=== PATIENT | female | born 1995 | race Caucasian/White ===

== ENCOUNTER 2017-03-06 19:59 | Inpatient (IN) | payer OTHER ==
[~2017-03-06] VITALS: Ht 167.6 cm; Wt 55.8 kg
--- NOTE | 2017-03-07 00:45 | NUR ---
Intake Assessment Assessment done at intake office. Patient is alert & oriented x4. Pt is ambulatory with a steady gait. Speech is clear and audible. Pt appears slightly anxious and is cooperative during interviews. Vitals noted B/P 121/73, GA 106, RR 16, Temp 97.8, O2Sat 96%. Pt is here for Heroin/Xanax/Meth. Pt has Hepatitis C, Anxiety & Depression. Hx of Sz noted d/t benzo withdrawal. Pt denies any food and drug allergies. Pt did not bring any home medications. Explained to pt unit protocols. Pt verbalized understanding.
--- NOTE | 2017-03-07 01:00 | NUR ---
ADMISSION NOTE: Patient is a 22 y.o male admitted at [facility] at approximately 0053 am of 03/07/17 for medically supervised withdrawal from Opiate and Benzo. Body search done and skin check performed, no contraband found. Skin intact. Pt has a bump on her right foot and noted to be red, warm & with complaints of slight pain. Pt is 5'6" tall and weighs 123 lbs in a standing scale. Pt is cooperative during assessment. Patient is oriented to floor unit and room. Patient follows a regular diet at home with no known food and drug allergies. Pt wishes to be full Code. Patient is alert & oriented x4, ambulatory with a steady gait. Speech is clear and audible. Patient is cooperative during interview. No shortness of breath noted. Respiration even & unlabored. Abdomen soft & non-distended. Bowel sounds active in all four quadrants. No nausea/vomiting noted. No complaints of pain/discomfort. No Bilateral hand tremors noted at this time. No hallucinations. Pt currently denies SI/HI. COWS 3 CIWA 1 noted. Patient reported PmHx of Hepatitis C, Anxiety & Depression. Pt was able to provide urine sample for drug screen upon admission and is voiding clear yellow urine with no problems. Substance use: 1. Xanax- Pt has been taking PO Xanax since 16 years old. Pt uses 2-6mg daily for 1 year. Pt last took was 4mg on 03/06/17. 2. Heroin- Pt has been taking IV Heroin since 16 years old. Pt uses 2grams daily for 1 year. Pt last use was 1gram on 03/06/17 2 hours before admission. 3. Meth- Pt just started taking IV Meth a year ago . Pt uses 1 gram daily for 1 year. Pt last use was 0.5 gram on 03/06/17. Treatment History: Pt has been to Multiple Tx centers -[facility] at [place] for 4 months (2014) -[facility] in [place] -Unable to recall others Patient denies being hospitalized in the last 30 days. Patient reports his longest period of sobriety was for 1 year from Feb 2015 to Feb 2016. Patient reports symptoms when he does not use as goose bumps, sweating, anxiety, constipation/diarrhea, body aches, confusion, & headache. Patient smokes 10 cigarettes daily. Patient refused flu & pneumonia vaccines, educated patient risk & benefits but still refused. Patient does not have a PCP. Urine drug screen came back positive for Opiates and Methamphetamine. Fall & Seizure precautions are in place. All needs attended & met. Safety precautions are in place. Bed locked in lowest position. Both side rails padded & up. Call light within pt's reach. Notified Dr. Morgan of pt's admission. Will continue to monitor patient.
[2017-03-07 01:17] LABS: *URINE HCG, QUAL NEGATIVE (NEGATIVE)
[2017-03-07 01:39] LABS: *AMPHETAMINE, URINE POSITIVE (NEGATIVE); *BARBITURATE, URINE NEGATIVE (NEGATIVE); *CANNABINOID, URINE POSITIVE (NEGATIVE); *COCCAINE, URINE NEGATIVE (NEGATIVE); *OPIATE, URINE POSITIVE (NEGATIVE); *PHENCYCLIDINE SCREEN,URINE NEGATIVE (NEGATIVE)
--- NOTE | 2017-03-07 01:59 | NUR ---
PRN Benadryl Patient requesting for medication to help her sleep. PRN Benadryl administered as ordered. Will continue to monitor patient.
[2017-03-07 03:38] LABS: ALANINE AMINOTRANSFERASE 141 U/L (14-59); ALKALINE PHOSPHATASE 217 U/L (50-136); AMYLASE 39 U/L (25-115); ASPARTATE AMINOTRANSFERASE 36 U/L (15-37); BILIRUBIN,TOTAL 0.5 mg/dL (0.2-1.0); CARBON DIOXIDE 29 mmol/L (21-32); CHLORIDE 100 mmol/L (98-107); CREATININE 0.8 mg/dL (0.6-1.3); GLUCOSE 133 mg/dL (74-106); LIPASE 135 U/L (73-393); MAGNESIUM 2.3 mg/dL (1.8-2.4); POTASSIUM 2.9 mmol/L (3.5-5.1); TOTAL PROTEIN, SERUM 10.3 g/dL (6.4-8.2); UREA NITROGEN, BLOOD 6 mg/dL (7-18)
[2017-03-07 03:41] LABS: ETHANOL < 3 MG/DL (0-0)
[2017-03-07 03:49] LABS: THYROID STIMULATING HORMONE 4.816 mIU/mL (0.358-3.740)
--- NOTE | 2017-03-07 04:00 | NUR ---
Communication: Dr Morgan contacted for new lab results: K+ 2.9. New order received for K-Dur 40meq PO x1 now and K-Dur 20meq PO x1 to be given one hour after first dose administered. Order noted, repeated, and carried out.
[2017-03-07 05:20] VITALS: BP 112/75
--- NOTE | 2017-03-07 07:08 | NUR ---
End of Shift Note: Patient is a 22 y/o female admitted today 03/07/17 for Heroin, Xanax and Meth dependence. Patient reports using Xanax 2-6 mg daily, Heroin Iv 2gms daily and Meth IV 1gm daily for 1 year. Patient has PMHx of Hepatitis C, Anxiety, Depression and Seizure history d/t benzo withdrawal 2 years ago. Patient is on a regular diet with no known food and drug allergies. Full Code status noted. Skin noted to be intact. COWS 3 CIWA 1. Pt was given PRN Benadryl and K-dur 60meq for potassium level of 2.9. Patient is stable and vitals remains WNL. Pt slept for a total of 3 hours. Pt consumed 296ml of fluids. Voided 1x with no bowel movement. All needs attended & met. Safety measures in place. Will continue to monitor patient.
[2017-03-07 08:00] VITALS: BP 96/60
--- NOTE | 2017-03-07 08:30 | NUR ---
START OF SHIFT: RECEIVED PT LAYING IN BED A/O X 4. SHE C/O RESTLESSNESS,H/A 5/10,MILD MUSCLE ACHES,CHILLS, SWEATS AND SEVERE ANXIETY.FINE TREMORS NOTED. CIWA 10 COWS 10. PRN VALIUM 10 MG PO GIVEN TO MANAGE CIWA 10. PRN TYLENOL AND PRN ROBAXIN GIVEN TO MANAGE MUSCLE ACHES AND H/A. WILL MONITOR EFFECTIVENESS OF PRN MED. WILL CONTINUE TO MONITOR AND MANAGE S/S OF W/D.
--- NOTE | 2017-03-07 09:30 | NUR ---
PRN VALIUM EFFECTIVE PT'S CIWA NOW 5. SHE STATES TYLENOL AND ROBAXIN WERE EFFECTIVE AND SHE STATES SHE FEELS BETTER.
[2017-03-07 12:00] VITALS: BP 98/64
--- NOTE | 2017-03-07 12:45 | NUR ---
ORDERED SUBUTEX ATIVAN TAPER TO START AT 1300.
[2017-03-07 16:00] VITALS: BP 112/66
--- NOTE | 2017-03-07 18:50 | NUR ---
END OF SHIFT: PT STARTED ON ATIVAN/SUBUTEX TAPER TODAY. 1700 MEDS AND 1600 COWS AND CIWA DEFERRED PT WAS ASLEEP. LAST COWS 14 CIWA 7 AT NOON. SHE C/O CHILLS,BODY ACHES ,SWEATS AND ANXIETY THIS AM AND STATES DETOX MEDS HAVE BEEN EFFECTIVE. PT WAS COMPLIANT WITH REST AND FLUIDS TODAY. WILL PASS SHIFT REPORT TO ONCOMING NIGHT NURSE.
--- NOTE | 2017-03-07 19:15 | NUR ---
Start of Shift Note: Patient is a 22 y/o female admitted today 03/07/17 for Heroin, Xanax and Meth dependence. Patient reports using Xanax 2-6 mg daily, Heroin Iv 2gms daily and Meth IV 1gm daily for 1 year. Patient has PMHx of Hepatitis C, Anxiety, Depression and Seizure history d/t benzo withdrawal 2 years ago. Patient is on a regular diet with no known food and drug allergies. Full Code status noted. Skin noted to be intact. Last COWS 14 CIWA 7 @ 1200. Pt was given PRN Valium, Tylenol & Robaxin during day shift. Patient is stable and vitals remains WNL. Pt was started on a 5-day Subutex and 5-day Ativan taper. No A/R noted. Patient is alert & oriented x4. Patient is ambulatory with a steady gait. No shortness of breath noted. Respiration even & unlabored. Abdomen soft & non-distended. No complaints of nausea noted. Patient presented with 8/10 generalied body aches, chills, & sweating. Hand tremors felt. Pt denies any hallucinations. Safety measures in place. Bed locked in lowest position. Both side rails up. Call light within pt's reach. Will continue to monitor patient.
[2017-03-07 20:00] VITALS: BP 107/61
[2017-03-08] VITALS: BP 104/62
[2017-03-08 04:00] VITALS: BP 107/70
--- NOTE | 2017-03-08 07:21 | NUR ---
End of Shift Note: Patient is a 22 y/o female admitted today 03/07/17 for Heroin, Xanax and Meth dependence. Patient reports using Xanax 2-6 mg daily, Heroin Iv 2gms daily and Meth IV 1gm daily for 1 year. Patient has PMHx of Hepatitis C, Anxiety, Depression and Seizure history d/t benzo withdrawal 2 years ago. Patient is on a regular diet with no known food and drug allergies. Full Code status noted. Skin noted to be intact. Pt is on a 5-day Ativan and 5-day Subutex taper and tolerating well. COWS 4 CIWA 3. No PRN medications given. Patient compliant with medicaitons and treatment plan. Patient is stable and vitals remains WNL. Pt slept for a total of 10 hours. Pt consumed 1349 ml of fluids. Voided 1x with no bowel movement. All needs attended & met. Safety measures in place. Will continue to monitor patient.
[2017-03-08 08:00] VITALS: BP 105/63
--- NOTE | 2017-03-08 08:03 | NUR ---
START OF SHIFT: RECEIVED PT A/O X 4. SHE PRESENTS WITH IRRITABLE MOOD AND CONGRUENT AFFECT. SHE C/O ANXIETY,CHILLS,SWEATS,AND BODY ACHES. SHE STATES SHE SLEPT WELL AND HER APPETITE IS FAIR. SUBUTEX/ATIVAN TAPER IN PROGRESS.COWS 8 CIWA 4. ENCOURAGED INCREASED FLUIDS TO ASSIST IN FACILITATING DETOX PROCESS.
[2017-03-08 11:06] LABS: HEPATITIS B SURFACE AG Negative (Negative)
[2017-03-08 12:00] VITALS: BP 110/62
--- NOTE | 2017-03-08 14:29 | NUR ---
NON-ADMINISTERED ATIVAN AND SUBUTEX AT 1500 PT IS SLEEPING. PT WAS EASILY AROUSABLE AND STATED "I WILL WAIT AND TAKE THE 9PM DOSE . I JUST WANT TO BE LEFT ALONE SO I CAN SLEEP" WILL CONTINUE TO MONITOR AND OFFER SUPPORT.
--- NOTE | 2017-03-08 15:27 | NUR ---
PT AWOKE AND STATES SHE CHANGED HER MIND AND WANTS THE DETOX MEDS.WILL ADMINISTER ORDERED.
[2017-03-08 16:00] VITALS: BP 117/78
--- NOTE | 2017-03-08 18:30 | NUR ---
END OF SHIFT: PT CONTINUES ON ATIVAN/SUBUTEX TAPER . LAST COWS 9 CIWA 4 .SHE C/O BODY ACHES ,SWEATS,FATIGUE, ANXIETY AND STATES DETOX MEDS HAVE BEEN EFFECTIVE.NO PRNS GIVEN.WILL PASS SHIFT REPORT TO ONCOMING NIGHT NURSE.
--- NOTE | 2017-03-08 19:15 | NUR ---
Start of Shift Note: Patient is a 22 y/o female admitted today 03/07/17 for Heroin, Xanax and Meth dependence. Patient reports using Xanax 2-6 mg daily, Heroin Iv 2gms daily and Meth IV 1gm daily for 1 year. Patient has PMHx of Hepatitis C, Anxiety, Depression and Seizure history d/t benzo withdrawal 2 years ago. Patient is on a regular diet with no known food and drug allergies. Full Code status noted. Skin noted to be intact. Last COWS 9 CIWA 4 @ 1600. No PRN medications given during day shift. Patient is stable and vitals remains WNL. Pt is on a 5-day Subutex and 5-day Ativan taper. No A/R noted. Patient is alert & oriented x4. Patient is ambulatory with a steady gait. No shortness of breath noted. Respiration even & unlabored. Abdomen soft & non-distended. No complaints of nausea noted. Patient denies any pain/discomfort. Patient presented with complains of sweating, chills & fatigue. No hand tremors noted. Pt denies any hallucinations. Safety measures in place. Bed locked in lowest position. Both side rails up. Call light within pt's reach. Will continue to monitor patient.
[2017-03-08 20:00] VITALS: BP 105/72
[2017-03-09] VITALS: BP 108/76
[2017-03-09 07:06] LABS: BILIRUBIN,DIRECT 0.1 mg/dL (0.0-0.2); BILIRUBIN,TOTAL 0.2 mg/dL (0.2-1.0); CREATININE 0.6 mg/dL (0.6-1.3); MAGNESIUM 1.8 mg/dL (1.8-2.4); POTASSIUM 4.2 mmol/L (3.5-5.1)
--- NOTE | 2017-03-09 07:15 | NUR ---
End of Shift Note: Pt had an uneventful night. Pt continues on her Subutex and Ativan taper and she is tolerating well. Last COWS 4 CIWA 4. No PRN medications were given. Pt reported that taper medications is effectiving in decreasing her withdrawal symptoms. Pt is alert & oriented x4. Pt remained stable and vitals remains WNL. Pt remained compliant with medications and treatment. Pt slept for a total of 7 hours. Pt consumed 828 ml of fluids. Voided 2x with no bowel movement. All needs have been met. All safety measures in place per hospital policy. Bed in lowest position, side rails up x2, call-light within reach. Will continue to monitor.
[2017-03-09 07:58] LABS: HEMATOCRIT 39.6 % (37-47); HEMOGLOBIN 12.9 G/DL (12.0-16.0); WHITE BLOOD COUNT (AUTO) 9.6 K/UL (4.0-11.2)
[2017-03-09 07:59] LABS: MEAN CORPUSCULAR HEMOGLOBIN 26.2 UUG (27.0-31.0); MEAN CORPUSCULAR HGB CONC 32 g/dL (32.0-37.0); MEAN CORPUSCULAR VOLUME 80.9 FL (81.0-99.0); PLATELET COUNT (AUTO) 304 K/UL (150-450)
[2017-03-09 08:00] VITALS: BP 90/60
[2017-03-09 08:00] LABS: EOSINOPHILS # (AUTO) 0.3 K/uL (0.0-0.7); MONOCYTES # (AUTO) 0.7 K/UL (0.1-1.30); NEUTROPHILS # (AUTO) 4.5 K/UL (1.8-8.9)
--- NOTE | 2017-03-09 08:10 | NUR ---
START OF SHIFT: RECEIVED PT A/O X 4. SHE PRESENTS WITH ANXIOUS MOOD AND CONGRUENT AFFECT. SHE C/O ANXIETY,AND BODY ACHES. SHE STATES SHE SLEPT WELL AND HER APPETITE IS FAIR. SUBUTEX/ATIVAN TAPER IN PROGRESS.COWS 6 CIWA 2. ENCOURAGED INCREASED FLUIDS TO ASSIST IN FACILITATING DETOX PROCESS. ENCOURAGED GROUP ATTENDANCE TO IMPROVE COPING SKILLS AND PREVENT RELAPSE.WILL CONTINUE TO MONITR.
--- NOTE | 2017-03-09 10:37 | NUR ---
Therapist prompted client about group times. Client stated she will try to attend.
[2017-03-09 11:01] LABS: THYROID STIMULATING HORMONE 2.37 mIU/mL (0.358-3.740)
[2017-03-09 12:00] VITALS: BP 115/61
[2017-03-09 16:00] VITALS: BP 112/66
--- NOTE | 2017-03-09 18:34 | NUR ---
END OF SHIFT: PT CONTINUES ON ATIVAN/SUBUTEX TAPER . LAST COWS 5 CIWA 2 .SHE C/O BODY ACHES ,FATIGUE, ANXIETY AND STATES DETOX MEDS HAVE BEEN EFFECTIVE.NO PRNS GIVEN.SHE STATES SHE WASN'T FEELING GOOD ENOUGH TO GO TO GROUPS. SHE STATES SHE WILL GO TOMORROW.WILL PASS SHIFT REPORT TO ONCOMING NIGHT NURSE.
[2017-03-09 20:00] VITALS: BP 110/70
--- NOTE | 2017-03-09 20:00 | NUR ---
Start of Shift Note Received 22 y/o px, admitted 03/07/2017 for opiates and benzos dependence. NKA, regular diet, wishes to be on Full Code. Patient is alert & oriented x4, ambulatory with a steady gait. Speech is clear and audible. Patient is cooperative during interview. No shortness of breath noted. Respiration even & unlabored. No complaints at this time. All safety measures in place. Will continue to monitor and provide support.
[2017-03-10] VITALS: BP 90/60
[2017-03-10 04:00] VITALS: BP 101/76
--- NOTE | 2017-03-10 04:00 | NUR ---
COWS and CIWA deferred COWS and CIWA were deferred at 0000 and 0400 due to the px was sleeping. To assess if the px is awake per doctor's order. Respirations are unlabored. We'll continue to monitor.
--- NOTE | 2017-03-10 07:06 | NUR ---
End of Shift Note Received 22 y/o px, admitted 03/07/2017 for opiates and benzos dependence. NKA, regular diet, wishes to be on Full Code. Patient is alert & oriented x4, ambulatory with a steady gait. Speech is clear and audible. During the shift, reports anxiety and sweating. No shortness of breath noted. Respiration even & unlabored. No complaints of pain. Oral intake of 1L, voided 2x, No BM. Slept for 7 hrs. All safety measures in place. Will continue to monitor and provide support.
[2017-03-10 08:00] VITALS: BP 96/62
--- NOTE | 2017-03-10 08:06 | NUR ---
START OF SHIFT NOTE Received pt laying in bed appears agitated. Patient presents with blunted affect. Pt on 5 day Subutex/5 Day Ativan taper. No PRNs given per night nurse. She slept 7 hours. Patient on seizure precautions. Vital signs stable. Encouraged pt to attend groups and activities. Encouraged pt to increase fluid intake and notify RN if S/S of W/D worsen. Will monitor.
[2017-03-10 12:00] VITALS: BP 121/77
[2017-03-10 16:00] VITALS: BP 121/79
--- NOTE | 2017-03-10 18:39 | NUR ---
END OF SHIFT NOTE PATIENT CONTINUED ON 5 DAY SUBUTEX/ 5 DAY ATIVAN TAPER DURING SHIFT. PATIENT PRESENTED WITH AGITATED MOOD DURING SHIFT. NO PRNS GIVEN. LAST COWS 4 CIWA 4. SEIZURE PRECAUTIONS IN PLACE. VITAL SIGNS STABLE. ALL NEEDS MET. SAFETY MEASURES IN PLACE. WILL ENDORSE TO NIGHT NURSE.
[2017-03-10 20:00] VITALS: BP 119/74
--- NOTE | 2017-03-10 20:00 | NUR ---
Start of Shift Note Received 22 y/o px, admitted 03/07/2017 for opiates and benzos dependence. NKA, regular diet, wishes to be on Full Code. Patient is alert & oriented x4, ambulatory with a steady gait. During the rounds at 2000, No complaints received. No shortness of breath noted. Respiration even & unlabored. COWS 4, CIWA 4. All safety measures in place. Will continue to monitor and provide support.
[2017-03-11] VITALS: BP 96/60
--- NOTE | 2017-03-11 | NUR ---
COWS and CIWA deferred COWS and CIWA deferred at 0000 due to the px is sleeping, to assess if the px is awake per doctors order. Well continue to monitor.
[2017-03-11 04:00] VITALS: BP 104/66
--- NOTE | 2017-03-11 04:00 | NUR ---
COWS and CIWA deferred COWS and CIWA deferred at 0400 due to the px is sleeping, to assess if the px is awake per doctors order. Well continue to monitor.
--- NOTE | 2017-03-11 07:08 | NUR ---
End of Shift Note Received 22 y/o px, admitted 03/07/2017 for opiates and benzos dependence. NKA, regular diet, wishes to be on Full Code. Patient is alert & oriented x4, ambulatory with a steady gait. Speech is clear and audible. During the shift, reports fatigued. No SOB noted. Respiration even & unlabored. Oral intake of 600 ml, voided 1x, no BM. Slept for 7 hrs. All safety measures in place. Last COWS 4, CIWA 4. Well continue to monitor and provide support.
--- NOTE | 2017-03-11 07:50 | NUR ---
START OF SHIFT NOTE Received pt laying in bed appears agitated. Patient presents with blunted affect. Pt on 5 day Subutex/5 Day Ativan taper. No PRNs given per night nurse. She slept 7 hours. Last COWS 4 CIWA 4. Patient on seizure precautions. Vital signs stable. Encouraged pt to attend groups and activities. Encouraged pt to increase fluid intake and notify RN if S/S of W/D worsen. Will monitor.
[2017-03-11 08:00] VITALS: BP 105/61
[2017-03-11 12:00] VITALS: BP 98/58
[2017-03-11 16:00] VITALS: BP 122/82
--- NOTE | 2017-03-11 16:50 | NUR ---
ELOPEMENT Patient eloped the hospital despite repeated encouragement by PANAMA [employer]ER and hospital staff to stay and finish their treatment. Patient ignored all encouragement and kept walking away. Patient left the building with out her belongings and with no hesitation. MD mina.
== END 2017-03-11 16:45 | disposition left against medical advice (07) | DRG 895 ==
LOC: SRC 03-07 00:35
PROVIDERS: ADMIT Internal Medicine; ATTEND Internal Medicine
PROC: HZ2ZZZZ Detoxification Services for Substance Abuse Treatment (ICD-10-PCS; principal; 2017-03-07)
PROC: HZ31ZZZ Individual Counseling for Substance Abuse Treatment, Behavioral (ICD-10-PCS; 2017-03-09)
DX: F11.23 Opioid dependence with withdrawal (principal); F32.9 Major depressive disorder, single episode, unspecified; F15.23 Other stimulant dependence with withdrawal; B19.20 Unspecified viral hepatitis C without hepatic coma; F41.9 Anxiety disorder, unspecified; F17.210 Nicotine dependence, cigarettes, uncomplicated; E87.6 Hypokalemia; F12.90 Cannabis use, unspecified, uncomplicated; R73.9 Hyperglycemia, unspecified; E07.81 Sick-euthyroid syndrome; Z81.8 Family history of other mental and behavioral disorders; Z81.3 Family history of other psychoactive substance abuse and dependence; F13.230 Sedative, hypnotic or anxiolytic dependence with withdrawal, uncomplicated
CPT/HCPCS: 36415; 80307; 80324; 80349; 80361; 83690; 83735; 84443; 84703; 85025; 86592; 86705; 86803; 87340; 87806; G0480; J7030; Q0163